=== PATIENT | female | born 1990 | race Caucasian/White ===

== ENCOUNTER 2024-05-28 21:09 | Inpatient (IN) | payer OTHER ==
[~2024-05-28] VITALS: Ht 170.2 cm; Wt 71.0 kg
[~2024-05-28 21:09] MED LIST: Enoxaparin 40 MG/0.4 ML SYR SC SCH
[2024-05-28 21:22] LABS: BASOPHILS ABSOLUTE AUTO 0.04 K/mm3 (0.00-0.23); BASOPHILS PERCENT AUTO 0 % (0-2); EOSINOPHILS ABSOLUTE AUTO 0.37 K/mm3 (0.00-0.68); EOSINOPHILS PERCENT AUTO 4 % (0-6); Hematocrit 31.6 % (33.0-51.0); Hemoglobin 10.2 g/dL (11.5-16.0); IMMATURE GRAN ABSOLUTE AUTO 0.03 K/mm3 (0.00-0.10); IMMATURE GRAN PERCENT AUTO 0 % (0-1); LYMPHOCYTES ABSOLUTE AUTO 2.81 K/mm3 (0.84-5.20); LYMPHOCYTES PERCENT AUTO 30 % (21-46); MONOCYTES ABSOLUTE AUTO 1.17 K/mm3 (0.16-1.47); MONOCYTES PERCENT AUTO 12 % (4-13); Mean Corpuscular HGB 23.7 pg (26.0-34.0); Mean Corpuscular HGB Conc 32.3 g/dL (31.5-36.5); Mean Corpuscular Volume 74 fL (80-100); Mean Platelet Volume 9.3 fL (9.1-12.4); NEUTROPHILS ABSOLUTE AUTO 4.99 K/mm3 (1.96-9.15); NEUTROPHILS PERCENT AUTO 53 % (41-73); Platelet Count 331 K/mm3 (150-400); RDW Coefficient Variation 21.3 % (11.7-14.2); RDW Standard Deviation 55.8 fL (35.1-46.3); White Blood Cell Count 9.41 K/mm3 (4.00-11.30)
[2024-05-28 21:29] LABS: Source, Urine Clean Catch
[2024-05-28 21:34] LABS: Bilirubin, Urine Neg (Neg); Blood, Urine Neg (Neg); Glucose Qualitative, Urine Neg (Neg); Ketones, Urine Neg (Neg); Leukocyte Esterase, Urine 1+ (Neg); Nitrite, Urine Neg (Neg); Protein, Urine 2+ (Neg); Urobilinogen, Urine 1+ (Normal)
[2024-05-28 21:42] LABS: Appearance, Urine Hazy (Clear); Color, Urine Yellow (P-Yellow)
[2024-05-28 21:43] LABS: Amorphous Mod (0-Heavy); Bacteria Few /hpf; Mucus Mod (0-Heavy); Red Blood Cells, Urine Not Seen /hpf (0-2); Squamous Epithelial Cells Few /hpf (Few)
[2024-05-28 21:44] LABS: U Amphetamine Screen DETECTED; U Barbituate Screen Not Detected; U Benzodiazapine Screen DETECTED; U Buprenorphine Screen Not Detected; U Cannabinoids Screen DETECTED; U Cocaine Screen Not Detected; U Methadone Screen Not Detected; U Methamphetamine Screen DETECTED; U Opiates Screen Not Detected; U Oxycodone Screen Not Detected; U Phencyclidine Screen Not Detected
[2024-05-28 21:46] LABS: Acetaminophen, Random <2.0 ug/mL (10.0-30.0); Alanine Aminotransfer (ALT/SGP 23 U/L (12-78); Albumin, Blood 3.3 g/dL (3.4-5.0); Alk Phos 70 U/L (50-136); Anion Gap 9 mmol/L (3-11); Aspartate Aminotrans (AST/SGOT 20 U/L (12-37); Bilirubin, Total 0.4 mg/dL (0.1-1.0); Blood Urea Nitrogen 18 mg/dL (8-24); Bun/Creatinine Ratio 26.2 (12.0-20.0); CO2, Blood 25 mmol/L (21-32); Calcium, Blood 8.4 mg/dL (8.5-10.1); Chloride, Blood 109 mmol/L (98-108); Creatinine, Blood 0.69 mg/dL (0.40-1.00); Ethanol (Alcohol), Blood, Med <3 mg/dL; Globulin, Blood 3.2 g/dL (2.2-4.0); Glomerular Filtration Rate 67 (60-); Glucose, Blood 162 mg/dL (70-99); Potassium, Blood 3.4 mmol/L (3.5-5.5); Salicylate <1.7 mg/dL (2.8-20.0); Sodium, Blood 140 mmol/L (136-145); Total Protein, Blood 6.5 g/dL (6.4-8.2)
[2024-05-28] MEDS ORDERED: ZIPR60 PO (21:48)
[2024-05-28] MEDS ORDERED: MIRT30ST PO (21:48)
[2024-05-28] MEDS ORDERED: AMOCLA875 PO (21:48)
[2024-05-28] MEDS ORDERED: GABA100 PO (21:48)
[2024-05-28] MEDS ORDERED: Prozac40 MG PO (21:48)
[2024-05-28] MEDS ORDERED: IBU600 M1 PO (21:49)
[2024-05-28] MEDS ORDERED: ATOM40 PO (21:49)
[2024-05-28] MEDS ORDERED: CLON1 UD (21:49)
[2024-05-28] MEDS ORDERED: NS 1,000 ML IV SCH ×2 (22:15→23:50)
[2024-05-28 22:26] LABS: Magnesium, Blood 1.9 mg/dL (1.6-2.4)
[2024-05-28] MEDS ORDERED: Ondansetron HCl 2 MG / ML 2ML Vial IV PRN (23:50)
[2024-05-28] MEDS ORDERED: FLU VACC TS2024-25(6MOS UP)/PF 45 MCG/0.5 ML SYRINGE IM ONE (23:55)
[2024-05-29] VITALS (87 sets, daily range): BP systolic 84–122; BP diastolic 45–77
[2024-05-29] MEDS ORDERED: Potassium Chl 20MEQ/Water100ML 100 ML IV SCH (05:00)
[2024-05-29 05:26] LABS: BASOPHILS ABSOLUTE AUTO 0.03 K/mm3 (0.00-0.23); BASOPHILS PERCENT AUTO 1 % (0-2); EOSINOPHILS ABSOLUTE AUTO 0.35 K/mm3 (0.00-0.68); EOSINOPHILS PERCENT AUTO 6 % (0-6); Hematocrit 30.2 % (33.0-51.0); Hemoglobin 9.6 g/dL (11.5-16.0); IMMATURE GRAN ABSOLUTE AUTO 0.01 K/mm3 (0.00-0.10); IMMATURE GRAN PERCENT AUTO 0 % (0-1); LYMPHOCYTES ABSOLUTE AUTO 2.88 K/mm3 (0.84-5.20); LYMPHOCYTES PERCENT AUTO 45 % (21-46); MONOCYTES ABSOLUTE AUTO 0.65 K/mm3 (0.16-1.47); MONOCYTES PERCENT AUTO 10 % (4-13); Mean Corpuscular HGB 23.6 pg (26.0-34.0); Mean Corpuscular HGB Conc 31.8 g/dL (31.5-36.5); Mean Corpuscular Volume 74 fL (80-100); NEUTROPHILS ABSOLUTE AUTO 2.45 K/mm3 (1.96-9.15); NEUTROPHILS PERCENT AUTO 38 % (41-73); Platelet Count 309 K/mm3 (150-400); RDW Coefficient Variation 21.6 % (11.7-14.2); RDW Standard Deviation 56.9 fL (35.1-46.3); Red Blood Cell Count 4.07 M/mm3 (3.80-5.20); White Blood Cell Count 6.37 K/mm3 (4.00-11.30)
[2024-05-29 05:55] LABS: Bilirubin, Total 0.5 mg/dL (0.1-1.0); Bun/Creatinine Ratio 23.8 (12.0-20.0); Calcium, Blood 8.2 mg/dL (8.5-10.1); Creatinine, Blood 0.63 mg/dL (0.40-1.00); Potassium, Blood 3.4 mmol/L (3.5-5.5)
[2024-05-29] MEDS ORDERED: Mag Sulfate 1 GM/D5% 100ML 100 ML IV STA (09:30)
--- NOTE | 2024-05-29 10:57 | NUR ---
MORNING UPDATE AND POISON CONTROL RECOMMENDATIONS: PATIENT ARRIVED TO UNIT AT 08:08. PATIENT LETHARGIC. WITH LOUD VERBAL STIMULI, PATIENT ABLE TO NOD/SHAKE HEAD IN RESPONSE. ABLE TO WIGGLE TOES AND GENTLY SQUEEZE HANDS ON COMMAND. LATER IN THE MORNING, PATIENT ABLE TO LIFT HIPS FOR PLACEMENT OF BEDPAN. PATIENT ABLE TO VOID. URINE DARK WITH A FOUL ODOR. BLOOD PRESSURES ARE STABLE WITH MAPS >65. SBP IN THE 90S-100S. PATIENT CONTINUES TO BE SINUS MCKAY WITH HR 38-45. EKG PERFORMED AT 0839. IT SHOWED A QTC OF 491. SERIAL EKGS ORDERED PER DR. MARTINS. PATIENT CONTINUES TO BE STABLE ON ROOM AIR WITH SPO2 >98% AND RR AT 15. POISON CONTROL CALLED AROUND 10:45 THIS MORNING TO HELP CONTINUE TO MONITOR PATIENT. DISCUSSED ELECTROLYTE RECOMMENDATIONS (KCL >4, MAG >2 AND IONIZED CA >1.6). POTASSIUM AND MAG HAVE BEEN REPLACED THIS AM. ALSO RECOMMENDED TO CHANGE EKG TO Q6 (RATHER THAN Q8) AND THAT PATIENT MAY BE A CANDIDATE FOR LOW DOSE OF ATROPINE OR DOPAMINE. CALL PLACED TO DR. MARTINS. AWAITING CALL BACK.
[2024-05-29 12:23] LABS: Magnesium, Blood 2.5 mg/dL (1.6-2.4)
--- NOTE | 2024-05-29 12:53 | NUR ---
DECREASING HR AND BP: CALLED DR. MARTINS TO DISCUSS MOST RECENT LABS AND DOWNWARD TREND IN HR AND BP. HR IS NOW 36-42 BPM AND SPB IS IN THE 90S. MAPS STAYING ABOVE 65. PATIENT HAS ASKED QUESTIONS TO STAFF AND LET KNOW KNOW IF SHE IS NEEDS TO VOID OR THAT SHE IS THIRSTY. NEW ORDERS ENTERED BY DR. MARTINS.
[2024-05-29] MEDS ORDERED: Dopamine/Dextrose 250 ML IV SCH (13:00)
[2024-05-29] MEDS ORDERED: CALCIUM GLUC IN NACL, ISO-OSM 50 ML IV ONE (13:00)
[2024-05-29] MEDS ORDERED: NS 1,000 ML IV SCH (16:55)
--- NOTE | 2024-05-29 17:18 | NUR ---
BELONGINGS: BELONGINGS LOCKED IN THE CLOSET IN THE PATIENT'S ROOM. TWO BAGS ARE PRESENT.
--- NOTE | 2024-05-29 17:21 | NUR ---
OVERDOSE MEDICATIONS AND CUTS ON INNER LEFT FOREARM/WRIST NOTIFIED DR. MARTINS THAT THE PATIENT HAS SOME RECENT CUTS ON THE INNER SIDE OF HER LEFT FOREARM. THE SCABS ARE INTACT. THE WOUND IS HUMANITIES COORDINATOR AND C/D/I. IN ADDITION NOTIFIED DR. MARTINS THAT THE LAST TIME THE PATIENT WAS AWAKE, SHE WAS ABLE TO REPORT TO THE RN THAT SHE REMEMBERED TAKING CLONAZEPAM AND FLEXERIL. PATIENT DID NOT RESPOND TO THE RN WHEN SHE ASKED ABOUT GEODON.
--- NOTE | 2024-05-29 17:23 | NUR ---
SHIFT SUMMARY: NEURO: PATIENT SHOWED IMPROVEMENT DURING THE SHIFT. BY THE END OF THE SHIFT, PATIENT WAS SPEAKING TO STAFF AT TIMES AND ABLE TO ASK QUESTIONS WELL VERBALLY RESPOND TO STAFF QUESTIONS. PATIENT ABLE TO STAND TO THE BEDSIDE COMMODE. HOWEVER, PATIENT IS IMPULSIVE AND NEEDS REMINDERS TO FOLLOW STAFF COMMANDS. PATIENT CONTINUES TO BE LETHARGIC. PATIENT ABLE TO CORRECT STAFF AT THE END OF SHIFT THAT SHE TOOK CLONIDINE (NOT KLONIPIN) AND FLEXERIL. DR. MARTINS UPDATED. CARDIAC: PATIENT REQUIRED INITIATION OF DOPAMINE GTT TODAY. PATIENT ENDED THE SHIFT AT 4 MCG/KG/MIN TO MAINTAIN HR ABOVE 45 AND MAPS >65. PATIENT IS DIZZY AND UNSTEADY WITH STANDING. QTC REMAINED IN THE HIGH 400S DURING THE SHIFT. REPEAT EKG AT 14:30 DID NOT SHOW SIGNIFICANT CHANGES. RESPIRATORY: PATIENT REMAINED STABLE ON ROOM AIR WITH SPO2 >96% AND RR IN THE TEENS. LUNG SOUNDS CLEAR AND DIMINISHED. GI/: PATIENT UP TO THE BEDSIDE COMMODE MULTIPLE TIMES. URINE IMPROVED IN AMOUNT AND COLOR. FOUL ODOR PRESENT. BY THE END OF SHIFT, PATIENT AWAKE ENOUGH TO REQUEST FOOD AND TAKE SMALL SIPS. DR. MARTINS UPDATED. PSYCHSOCIAL: PATIENT REQUESTED THAT WE DO NOT RELEASE INFORMATION TO ANY CALLER (THIS INCLUDES HER MOTHER AND SADIE). SADIE CALLED THIS EVENING TO CHECK IN ON THE PATIENT. HE UNDERSTOOD WHY THE RN WAS NOT ABLE TO RELEASE ANY INFORMATION AND EXPRESSED HIS CONCERN OVER HER HAVING A SAFE DISCHARGE.
--- NOTE | 2024-05-29 18:18 | NUR ---
UPDATE TO POISON CONTROL: UPDATED POISON CONTROL THAT THE PATIENT REPORTED SHE TOOK CLONIDINE AND FLEXERIL. ALSO UPDATED ON CURRENT HR AND RATE OF DOPAMINE GTT. THEY REPORTED THAT THEY WILL CONTINUE TO CHECK IN. NO NEW RECOMMENDATIONS AT THIS TIME.
--- NOTE | 2024-05-29 20:46 | NUR ---
ASSUMPTION OF CARE: ASSUMED CARE OF PT AT 1900, RECEIVED REPORT FROM TRICIA NICHOLSON. PT ALERT AND ORIENTED TO SELF AND DATE/TIME. PT VERY IMPULSIVE BUT FOLLOWS DIRECTIONS. VERY DROWSY WHEN NOT STIMULATED, FALLS ASLEEP QUICKLY. DENIES SI AT THIS TIME. PT DOES NOT RECALL WHY SHE IS HERE OR WHAT HAPPENED. DOPAMINE INFUSING AT 4 MCG/KG/MIN TO MAINTAIN HR >45 AND MAP >65. HR CURRENTLY 50'S, MAP >65. PT SINUS BRADYCARDIC. DENIES CP/PRESSURE. SPO2 >95% ON RA, DENIES SOB. LUNGS CLEAR. ABLE TO TRANSFER TO BSC WITH ASSIST, VOIDING YELLOW URINE. PUPILS EQUAL AND REACTIVE. NS INFUSING AT 100 ML/HR. PIV TO RAC PATENT AND INFUSING. PIV TO LFA PATENT AND SALINE LOCKED. BED LOW AND LOCKED, 1:1 SITTER AT DOORWAY.
[2024-05-30] VITALS (67 sets, daily range): BP systolic 85–164; BP diastolic 47–94
[2024-05-30 04:01] LABS: BASOPHILS ABSOLUTE AUTO 0.03 K/mm3 (0.00-0.23); BASOPHILS PERCENT AUTO 0 % (0-2); EOSINOPHILS ABSOLUTE AUTO 0.34 K/mm3 (0.00-0.68); EOSINOPHILS PERCENT AUTO 5 % (0-6); Hematocrit 36.8 % (33.0-51.0); Hemoglobin 11.4 g/dL (11.5-16.0); IMMATURE GRAN ABSOLUTE AUTO 0.01 K/mm3 (0.00-0.10); IMMATURE GRAN PERCENT AUTO 0 % (0-1); LYMPHOCYTES ABSOLUTE AUTO 2.76 K/mm3 (0.84-5.20); LYMPHOCYTES PERCENT AUTO 37 % (21-46); MONOCYTES ABSOLUTE AUTO 0.67 K/mm3 (0.16-1.47); MONOCYTES PERCENT AUTO 9 % (4-13); Mean Corpuscular HGB 23.4 pg (26.0-34.0); Mean Corpuscular Volume 76 fL (80-100); Mean Platelet Volume 9.3 fL (9.1-12.4); NEUTROPHILS ABSOLUTE AUTO 3.57 K/mm3 (1.96-9.15); NEUTROPHILS PERCENT AUTO 48 % (41-73); Platelet Count 359 K/mm3 (150-400); RDW Coefficient Variation 22.1 % (11.7-14.2); RDW Standard Deviation 59.5 fL (35.1-46.3); Red Blood Cell Count 4.87 M/mm3 (3.80-5.20); White Blood Cell Count 7.38 K/mm3 (4.00-11.30)
[2024-05-30 04:21] LABS: Albumin, Blood 3.2 g/dL (3.4-5.0); Albumin/Globulin Ratio 0.9 (0.8-1.8); Bilirubin, Total 0.4 mg/dL (0.1-1.0); Bun/Creatinine Ratio 15.7 (12.0-20.0); Calcium, Blood 8.6 mg/dL (8.5-10.1); Creatinine, Blood 0.58 mg/dL (0.40-1.00); Globulin, Blood 3.5 g/dL (2.2-4.0); Potassium, Blood 3.6 mmol/L (3.5-5.5); Total Protein, Blood 6.7 g/dL (6.4-8.2)
[2024-05-30] MEDS ORDERED: Potassium Chloride 40 MEQ IV SCH (04:35)
[2024-05-30] MEDS ORDERED: Potassium Chl 20MEQ/Water100ML 100 ML IV SCH (04:40)
--- NOTE | 2024-05-30 05:23 | NUR ---
SHIFT SUMMARY: PT MORE ALERT THIS MORNING. ANSWERING QUESTIONS AND MAKING NEEDS KNOWN. PT UPSET ABOUT BEING IN THE ICU. STATES SHE WANTS TO LEAVE AND HAS NO REASON TO BE HERE. DENIES SI, DENIES TAKING ANY MEDICATION PRIOR TO COMING TO THE HOSPITAL, STATES THAT SHE HAD NO MEDICATION WITH HER. EDUCATED PT ON WHY SHE IS IN THE ICU AND PLAN TO SEE PSYCHIATRIST TODAY. PT AGREEABLE TO PLAN. CONTINUES ON DOPAMINE AT 4 MCG/KG/MIN THIS MORNING. SEE FLOWSHEET FOR TITRATIONS. ATTEMPTED TO TITRATE DOWN AND PT HR DROPPED TO 39, MAP DROPPED TO 55. TURNED BACK UP. PT HR CURRENTLY IN THE 50'S WITH A MAP >65. DENIES CP/PRESSURE. REMAINS ON RA WITH SPO2 MID TO HIGH 90'S. RR 14-20. NS AT 100 ML/HR. PIVS INTACT. PT UP TO BSC T/O THE NIGHT WITH ASSIST, VOIDING LARGE AMOUNTS OF YELLOW URINE. PT DIZZY AND LIGHTHEADED ONCE THIS SHIFT WHILE GETTING UP. PT VERY IMPULSIVE AND TRIES TO CLIMB OVER RAIL TO GET TO THE BATHROOM. BED LOW AND LOCKED, SITTER AT THE DOOR. PT CALLED THIS MORNING FOR AN UPDATE, PER THE PT SHE DID NOT WANT THIS RN UPDATING HER ON HER CONDITION.
--- NOTE | 2024-05-30 07:38 | NUR ---
[facility] Patient resting in bed, a little restless moving legs and arms around. Patient able to state she was in [place] in a hospital and the date currently along with her birthdate. She was able to state that she took a bunch of pills and that is why she is in the hospital. Pt did not state why she took them, when asked. Pt has 2 piv's to left forearm both flushing easily and giving blood back. Moved pts dopamine going at 4mcg to left lower forearm iv. Her normal saline at 100 and potassium chloride going into her left ac iv. No edema noted ppp x 4 ext.. Lung sounds clear t/o and abd soft non-tender, and positive abd sounds x 4 quad as well. Awaiting psychiatry to see pt today now that she is more alert. Night nurse stated that pt does not want to speak to her mother or whom she is seperated from however her stated he would be coming to the hospital today from [place], [place].
[2024-05-30] MEDS ORDERED: LORazepam 2 MG/ML 1ML Injection ONE (09:25)
[2024-05-30] MEDS ORDERED: Midazolam HCL 1 MG/ML 5MLVIAL ONE (09:36)
[2024-05-30] MEDS ORDERED: LORazepam 2 MG/ML 1ML Injection IV ONE (09:45)
[2024-05-30] MEDS ORDERED: Midazolam HCL 1 MG/ML 5MLVIAL IM ONE (09:50)
--- NOTE | 2024-05-30 11:11 | NUR ---
UPDATE AT 0920 PT STARTED RIPPING OUT HER IV'S SAYING SHE DID NOT WANT THAT MEDICINE IN HER AFTER SHE SPOKE TO THE PYCHIATRIST. SHE WAS PUT ON A 2 MD LEGAL HOLD WITH THE PLAN TO HAVE HER GO TO [facility] ONCE SHE IS MEDICALLY STABLE. SHE BEGAN REFUSING CARE AND RIPPING AT EVERY IV. STAFF PROCEEDED TO CALL A CODE NICE AND PLACE HER IN RESTRAINTS AT 0930 4 POINTS. PULSE WAS IN THE 90'S ONCE LEADS WERE REPLACED BACK ON HER. SHE HAS BEEN STATING OVER AND OVER " I DONT WANT THAT "SHIT" IN ME". "I DON'T WANT TAHT MEDICINE IN ME. i DON'T CARE IF MY HEART RATE DROPS." SHE WAS THEN GIVEN IM VERSED. SHE HAS COMED DOWN SOME AT 1000 AND ANOTHER IV WAS ATTEMPTED BUT SHE AGAIN BEGAN TO REFUSE CARE, IV'S NOT SUCCESSFUL. TAPPING MACHINE OPERATOR WAS ABLE WITH ASSIT FROM SECURITY AND STAFF, ABLE TO GET A POWERGLIDE INTO HER LEFT UPPER ARM. PT REMAINS IN 4 POINT TWICE TOUGH CUFFS. SHE WAS REPOSITIONED SUPOINE HEAD OF BED UP 20 DEGREES AND ARMS AND LEGS MOVED.
[2024-05-30] MEDS ORDERED: LORazepam 2 MG/ML 1ML Injection IV PRN (11:15)
[2024-05-30] MEDS ORDERED: NS 1,000 ML IV SCH ×2 (13:47→13:55)
--- NOTE | 2024-05-30 14:28 | NUR ---
UPDATE PT WAS BATHED BED BATH AND ANEUDY AREA CLEANED AFTER SHE USED THE BEDPAN. HER ANKLES WERE TAKEN OUT OF RESTRAINTS AND HER WRIST WERE PUT IN SOFT RESTRAINTS. PT WAS COOPERATIVE WE PUT ON NEW SHEETS AND CLEANED HER UP.
[2024-05-30] MEDS ORDERED: MIRT30 PO (15:20)
[2024-05-30] MEDS ORDERED: CYCL10 PO (15:22)
[2024-05-30] MEDS ORDERED: CATAPRES0.2 M1 PO (15:23)
--- NOTE | 2024-05-30 18:30 | NUR ---
END OF SHIFT NOTE PT HAS BEEN RESTING IN BED WITH RESTRAINTS ON UPPER WRIST SOFT RESTRAINTS. TWICE TOUGH CUFFS WERE TAKEN OFF AT 1415 TODAY. PT STILL NOT WANTING TO HAVE THE IV MEDICATION GIVEN TO HER TO COUNTER ACT THE PILLS SHE OVER DOSED ON. STATED BY HER. PT IS ON ROOM AIR CLEAR LUNG SOUNDS PULSE IS 40-60'S SINUS MCKAY TO SINUS WITH THE DOPAMINE GOING AT 2MCG/KG/MIN. PT IS ALSO ON NS AT 100/HR ALL GOING IN TO THE POWERGLIDE THAT WAS PLACED TODAY SINCES SHE PULLED OUT HER OTHER 2 IV'S ON LEFT ARM TODAY. SHE IS USING A BEDPAN TO VOID CURRENTLY AND GETS ASSISTANCE TO EAT. SHE IS ON A 2 MD HOLD AND HER CIVIL RIGHTS WERE READ TO HER TODAY. PLAN IS TO GET HER INTO A U FACILITY WHEN MEDICALLY STABLE.
--- NOTE | 2024-05-30 20:14 | NUR ---
ASSUMPTION OF CARE: ASSUMED CARE OF PT AT 1900 FROM NICOLE NICHOLSON. PT ALERT AND ORIENTED X4. CALM AND COOPERATIVE WITH CARE AND FOLLOWING DIRECTION. PT AGREEABLE TO NOT PULLING AT IV'S, RESTRAINTS REMOVED AT 1999. PT ABLE TO STAND AND TRANSFER TO THE BEDSIDE COMMODE WITH ASSIST, VOIDING YELLOW URINE. PT ON RA WITH SPO2 MID TO HIGH 90'S. DENIES SOB. LUNGS CLEAR. CARDIAC MONTIOR IN PLACE, SB/SR WITH HR 45-65. MAP >65. DOPAMINE INFUSING AT 2 MCG/KG/MIN, SEE FLOWSHEET FOR TITRATIONS. DENIES CP/PRESSURE. DENIES PAIN T/O. PT STATES SHE IS NOT SUICIDAL AT THIS TIME. STATES SHE JUST WANTS TO SLEEP. PIV TO RAC, INTACT AND INFUSING DOPAMINE AND NS AT 100 ML/HR. POWERLGIDE TO KASEY, PATENT AND SALINE LOCKED. TOLERATING PO INTAKE AT THIS TIME. DENIES N/V. 1:1 SITTER AT THE DOOR. BED LOW AND LOCKED.
[2024-05-31] VITALS (33 sets, daily range): BP systolic 100–146; BP diastolic 56–91
[2024-05-31 04:20] LABS: Bun/Creatinine Ratio 21.9 (12.0-20.0); Creatinine, Blood 0.73 mg/dL (0.40-1.00); Magnesium, Blood 1.8 mg/dL (1.6-2.4); Potassium, Blood 3.7 mmol/L (3.5-5.5)
--- NOTE | 2024-05-31 05:07 | NUR ---
SHIFT SUMMARY: PT REMAINS ALERT AND ORIENTED T/O THE NIGHT. PLEASANT AND COOPERATIVE WITH ALL CARE. ABLE TO REST OFF AND ON T/O THE NIGHT. DOPAMINE REMAINS ON SB. SANE NURSE IN PLACE, SB/SR WITH HR 50-70'S. MAP >65. DENIES CP/PRESSURE. REMAINS ON RA, SPO2 HIGH 90'S. DENIES SOB. LUNGS CLEAR, RR 16-20. NS AT 100 ML/HR. POWERGLIDE TO KASEY PATENT AND INFUSING. PIV TO RAC PATENT AND SALINE LOCKED. ABLE TO VOID IN BSC WITH ASSIST TO COMMODE. VOIDING DARK URINE. NO BM THIS SHIFT. DENIES SI WHEN ASKED. TOLERATING PO INTAKE. BED LOW AND LOCKED, 1:1 SITTER AT DOOR.
[2024-05-31] MEDS ORDERED: HydrALAZINE HCl 10 MG Tab PO PRN (11:15)
--- NOTE | 2024-05-31 11:26 | NUR ---
REASSESSMENT PT HAS BEEN RESTING IN BED THROUGHOUT THE MORNING. GETS UP TO THE BR WITH ASSISTANCE FOR MANAGING CORDS ONLY. SHE IS ALERT AND ORIENTED, COOPERATIVE. LUNGS CLEAR, RA, SR WITH RATE IN THE 60S, BP STABLE WITH MAP OF 90. EATING AND DRINKING WITHOUT DIFFICULTY. PT DENIES SI TO THIS NURSE. PT REQUESTED HER BE NOTIFIED TO FITNESS MANAGER HER VEHICLE SO IT DOESN'T GET TOWED. PHONED NUMBER AVAILABLE FOR HER , BUT NO ANSWER. DR. MARTINS ROUNDED ON PT AND MEDICALLY CLEARED HER FOR BHU. NURSING MAMMALOGIST NOTIFIED AND AWAITING BED ASSIGNMENT.
[2024-05-31] MEDS ORDERED: HYDR10 PO (14:52)
--- NOTE | 2024-05-31 17:23 | NUR ---
SHIFT SUMMARY PT HAS REMAINED OFF OF THE DOPAMINE THROUGHOUT THE SHIFT. DR. MARTINS MEDICALLY CLEARED PT AND PT IS TO GO TO [facility]. REPORT JUST GIVEN TO [facility] NURSE. PT AWARE OF THE PLAN TO GO TO [facility] TONIGHT AND IS AGREEABLE. PT REMAINS ON RA, CLEAR LUNGS. PT IS EATING ALL OF HER MEALS, GETTING UP INDEPENDENTLY TO VOID. PT TOOK A SHOWER. CONTINUES ON 1:1 SUPERVISION.
[2024-05-31] MEDS ORDERED: CYCL10 PO (23:05)
[2024-05-31] MEDS ORDERED: ATOM40 PO (23:06)
[2024-05-31] MEDS ORDERED: CLON.2 PO (23:08)
[2024-05-31] MEDS ORDERED: CLON1 PO (23:10)
[2024-05-31] MEDS ORDERED: Prozac40 MG PO (23:10)
[2024-05-31] MEDS ORDERED: MIRT30ST PO (23:11)
[2024-05-31] MEDS ORDERED: GEODON60 MG PO (23:13)
[2024-05-31] MEDS ORDERED: ZIPR60 PO (23:15)
[2024-05-31] MEDS ORDERED: AMOCLA875 PO (23:17)
[2024-05-31] MEDS ORDERED: ESZO1 PO (23:18)
[2024-05-31] MEDS ORDERED: GABA100 PO (23:21)
== END 2024-05-31 18:10 | DRG 917 ==
LOC: ER 21:09 → EDBD 23:49 → ICUE 23:49 → ERHOLD 23:49 → ICUE 05-29 07:35
PROVIDERS: Emergency Medicine; Internal Medicine; ADMIT Internal Medicine
DX: T43.592A Poisoning by other antipsychotics and neuroleptics, intentional self-harm, initial encounter (principal); G92.8 Other toxic encephalopathy; F33.2 Major depressive disorder, recurrent severe without psychotic features; T42.4X2A Poisoning by benzodiazepines, intentional self-harm, initial encounter; T43.022A Poisoning by tetracyclic antidepressants, intentional self-harm, initial encounter; F60.3 Borderline personality disorder; F43.12 Post-traumatic stress disorder, chronic; F41.9 Anxiety disorder, unspecified; G62.9 Polyneuropathy, unspecified; R00.1 Bradycardia, unspecified; E87.6 Hypokalemia; Z79.899 Other long term (current) drug therapy
CPT/HCPCS: 36415; 80048; 80053; 80320; 81001; 81025; 82330; 82550; 83735; 83880; 84132; 85025; 93005; 93010; 96360; 99285-25; C1751; G0480; J0612; J1265; J1650; J2060; J2250; J3475; J3480; J7030; P9612

== ENCOUNTER 2024-05-31 15:41 | Inpatient (IN) | payer OTHER ==
[~2024-05-31 15:41] MED LIST changes: +AMOCLA875 PO; +ATOM40 PO; +CATAPRES0.2 M1 PO; +CLON1 UD; +CYCL10 PO; -Enoxaparin 40 MG/0.4 ML SYR SC SCH; +GABA100 PO; +HYDR10 PO; +IBU600 M1 PO; +MIRT30 PO; +MIRT30ST PO; +Prozac40 MG PO; +ZIPR60 PO
[2024-05-31] MEDS ORDERED: OLANZapine 10 MG Vial IM PRN ×2 (19:00)
[2024-05-31] MEDS ORDERED: Acetaminophen 325 MG TABLET PO PRN (19:00)
[2024-05-31] MEDS ORDERED: FLU VACC TS2024-25(6MOS UP)/PF 45 MCG/0.5 ML SYRINGE IM ONE (19:05)
[2024-05-31] MEDS ORDERED: Aluminum Hydroxide 320MG/5ML 473 ML PO PRN (19:05)
[2024-05-31] MEDS ORDERED: Ibuprofen 600 MG Tab PO PRN (19:05)
[2024-05-31] MEDS ORDERED: ClonazePAM 0.5 MG Tab PO SCH (21:00)
[2024-05-31 21:59] VITALS: BP 167/102
[2024-05-31] MEDS ORDERED: CYCL10 PO (23:05)
[2024-05-31] MEDS ORDERED: ATOM40 PO (23:06)
[2024-05-31] MEDS ORDERED: CLON.2 PO (23:08)
[2024-05-31] MEDS ORDERED: Prozac40 MG PO (23:10)
[2024-05-31] MEDS ORDERED: CLON1 PO (23:10)
[2024-05-31] MEDS ORDERED: MIRT30ST PO (23:11)
[2024-05-31] MEDS ORDERED: GEODON60 MG PO (23:13)
[2024-05-31] MEDS ORDERED: ZIPR60 PO (23:15)
[2024-05-31] MEDS ORDERED: AMOCLA875 PO (23:17)
[2024-05-31] MEDS ORDERED: ESZO1 PO (23:18)
[2024-05-31] MEDS ORDERED: GABA100 PO (23:21)
--- NOTE | 2024-06-01 04:13 | NUR ---
Patient is alert and oriented, cooperative with assessment and conversive with staff and peers. She spent time in the milieu watching TV prior to bed. She has several medications in her med reconciliation, but several she did not know doses for and those will be reviewed with her pharmacy in [place] when pharmacy can be reached. Hopefully we can reach out on the holiday. Patient was very open and rafal about the auditory hallucinations that have driven to her recent suicide attempt. They involve someone taking her kids and torchering them while she watched. She said she has had intermittant hallucinations for years, but she can usually control them ian they are intermittant. will continiiue close monitoring every 15 minutes for comfort and safety.
--- NOTE | 2024-06-01 04:22 | NUR ---
A [facility] tariq came to the unit late last night to deliver a property receipt for a locked box of prescriptions that were taken the night they picked her up after her overdose. Receipt is in the back of her chart. Hopefully, this can be retrieved prior to her discharge home to [place].
[2024-06-01 08:17] VITALS: BP 143/93
[2024-06-01] MEDS ORDERED: Multivitamins 1 Tab PO SCH (09:00)
[2024-06-01] MEDS ORDERED: Ziprasidone HCL 20 MG Cap PO SCH (17:00)
--- NOTE | 2024-06-01 17:57 | NUR ---
SHIFT SUMMARY. PT DENIES SI. PT DOES HAVE AH. SHE HEARS IT ALL THE TIME. SHE HEARS THAT THE FBI TELLING HER THAT SHE WILL NEVER SEE HER KIDS AGAIN. SHE IS AWARE OF HER SURRONDINGS AND IS ABLE TO REMAIN CALM THOUGH OUT THE DAY. SHE MADE A PHONE CALL AFTER DINNER AND WAS CRYING. ASKED IF SHE NEEDED TO TALK AND SHE SAID " NO I'M OK". MED COMPLIANT AND RESTED THROUGH THE DAY. WILL HAVE A THYROID BIOPSY AFTER BATSHEVA. WILL CONTINUE TO MONITOR.
[2024-06-01] MEDS ORDERED: ClonazePAM 0.5 MG Tab PO SCH (21:00)
[2024-06-01 21:22] VITALS: BP 155/94
--- NOTE | 2024-06-02 06:01 | NUR ---
SHIFT SUMMARY Pt was sitting outside nurses' station on the phone at start of shift. The conversation did not appear to be productive, given pt's increase in volume and tearfulness. Encourage pt to end conversation before it became disruptive to peers. Pt was able to lower her volume and gain some emotional control. Cooperative with ending the call and took HS Klonopin, although expressed disappointment in the decrease in anxiety meds. BP elevated (155/94), taken after pt's conversation. Pt remained calm for rest of shift and appeared to be sleeping well overnight. No report of AH or SI this shift.
--- NOTE | 2024-06-02 09:12 | NUR ---
PT COOPERATIVE AND PLEASANT. ON LEAVING MY SHIFT LAST NIGHT PT WAS CRYING AND TALKING IN A HIGHER TONE, TO HER , SHE SAID THAT SHE WAS MISSING HER KIDS A LOT AND HER FAMILY LIVES WITH HER 'S FAMILY AND SHE WANTS THEM TO GET A PLACE ON THEIR OWN, BUT " I FEEL HE IS TO HIS MOM AND NOT ME" SHE IS HEARING VOICES 25/01 THAT SAY THAT THE FBI WILL HURT AND TORTURE HER CHILDREN, AND KILL HER. PT SAID SHE IS SAD MORE THAN DEPRESSED. SHE SAID SHE NEEDS TO BE FOCUSED ON HERSELF TO GET WELL. ENCOURAGED TO SHOWER TODAY AND TO PARTICIPATE IN GROUPS. WILL CONTINUE TO MONITOR
--- NOTE | 2024-06-02 17:11 | NUR ---
SHIFT SUMMARY: PT DENIES SI, BUT STILL IS HEARING VOICES OF HARM FOR HER CHILDREN AND HERSELF. SHE HAS BEEN UP IN THE [place] INTERACTING WITH PEERS AND STAFF. SHE SHOWERED AND WENT TO GROUPS. SHE HAS HAD A BETTER DAY TODAY. HAD A POSITIVE PHONE CALL TONIGHT AND IN A CHEERY MOOD. WILLL CONTINUE TO MONITOR
[2024-06-02] MEDS ORDERED: ClonazePAM 0.5 MG Tab PO SCH (21:00)
[2024-06-02] MEDS ORDERED: Mirtazapine 15 MG Tab PO SCH (21:00)
--- NOTE | 2024-06-03 06:11 | NUR ---
SHIFT SUMMARY New order for Remeron at HS, but pt has hx with med. Appears to be tolerating Klonopin taper without significant distress. Pt's boyfriend called after phone hours had ended for the evening. Pt was informed. Disappointed, but accepting of rules. Pt had already spoken with him several times throughout the day. Pleasant and cooperative with staff. Minimal interactions with peers. In bed after HS meds. No concerns with mood/SI expressed. Sleeping overnight without issue.
--- NOTE | 2024-06-03 11:03 | NUR ---
PT UP AND BREAKFAST. STILL HEARS VOICES OF HARM FOR HER CHILDREN AND HARM TO HERSELF. SHE SAID SHE HAD A RESTLESS SLEEP LAST NIGHT. SHE WANTS TO SEE HER KIDS. SHE SAYS THAT HER MOM WON'T LET HER STAY WITH HER WHEN SHE LEAVES SO NOW SHE IS HOMELESS. SHE DOESN'T WANT TO GO BACK TO HER HUBAND WHO HAS THE KIDS. DENIES TO BE SI, HI, A/V/H. STATES SHE IS JUST TIRED AND SAD. SHE WANTS THE DR TO INCREASE HER MEDS.
--- NOTE | 2024-06-03 11:55 | NUR ---
CONTINUE OF PREVIOUS NOTE. DR SPOKE TO PT ABOUT HER MEDICATIONS. PT HAS BEEN RESTING IN BED THIS AM. WILL CONTINUE TO MONITOR.
--- NOTE | 2024-06-03 17:16 | NUR ---
SHIFT SUMMARY: PT HAS SLEPT MOST OF THE DAY. SHE SAID SHE IS TIRED AND ONLY CAME OUT FOR MEALS. LET HER KNOW OF HER TRYING TO GET A HOLD OF HER AND SHE SAID SHE WOULD CALL HIM WHEN SHE WANTED. EXPLAINED TO HER THAT HE WANTS INFORMATION ON HER AND WE CANNOT GIVE IT OUT. SHE SAID OK. WILL CONTINUE TO MONITOR.
[2024-06-03 20:38] VITALS: BP 149/109
--- NOTE | 2024-06-04 00:09 | NUR ---
SHIFT SUMMARY Pt reports anxiety, but is feeling more hopeful today d/t phone call with kids. Pt has been participating in groups during the day, but received report that pt mostly slept on day shift. Pt was in bed at start of noc shift, got up for snack, then went back to bed. Gave HS meds and asked pt about her day/mood given the change in behavior. Pt denies SI and other concerns. Reports that she just felt like sleeping. Pt will converse with staff when engaged in conversation, but otherwise keeps to self consistently. On previous days, pt had monopolized the patient phone, so day shift staff enforced phone rule of 10 min limit to conversations. Since she has not been noted to interact with peers and talking on the phone was her main activity outside of groups, pt might need encouragement to socialize or engage in independent activities when she has free time. Pt believes that an increase in meds would be helpful for her anxiety, but denies other concerns.
--- NOTE | 2024-06-04 17:11 | NUR ---
SHIFT SUMMARY: PT DENIES SI. DID NOT EXPRESS ABOUT THE VOICES IN HER HEAD. WHEN SHE ASKED TO USE THE PHONE IN THE MORNING AND TOLD IT WASN'T PHONE HOURS SHE BECAME FUSTRATED AND STOMPED OFF WITH A GRUFF UNDER HER BREATH. SHE WAS NOT IN A HAPPY MOOD UNTIL MID DAY AND SHE STAYED AWAKE THE WHOLE DAY AND WAS ACTIVE IN THE MOVIES AND COLORING AND 1 GROUP. SHE INTERACTED WELL WITH HER PEERS. WILL CONTINUE TO MONITOR
[2024-06-04] MEDS ORDERED: Mirtazapine 30 MG Tab PO SCH (21:00)
--- NOTE | 2024-06-04 21:11 | NUR ---
HS ASSESSMENT PT IN BED DURING BEGINNING OF SHIFT. PT DECLINED VS FROM [facility] BUT I OBTAINED THEM DURING MED ADMINISTRATION. PT PLEASANT AND COOPERATIVE AT THIS TIME. PT DENIES ANY SI/HI OR AVH CURRENTLY. PT AGREED TO GET UP FOR HS SNACK AND JOINED PEERS IN DAY ROOM TO EAT HER SNACK. PT THEN RETURNED TO BED. WILL CONTINUE TO MONITOR AND PROVIDE SUPPORT NECESSARY.
[2024-06-04 21:23] VITALS: BP 126/79
--- NOTE | 2024-06-05 05:18 | NUR ---
SHIFT SUMMARY PT PLEASANT AND COOPERATIVE. PT REMAINED IN BED MOST OF THE SHIFT, UP 1X FOR SNACK AND RETURNED TO BED. PT DENIES SI/HI OR AVH. PT SLEPT T/O THE NIGHT W/ NO CONCERNS OR COMPLAINTS. WILL CONTINUE TO MONITOR AND PROVIDE SUPPORT NECESSARY.
[2024-06-05 08:18] VITALS: BP 144/101
--- NOTE | 2024-06-05 12:50 | NUR ---
Pt Agency Communication Pts PCI Odette reached out to An Lechuga our PCI for [facility], whom contacted me she would like us to give her a call pertaining to pts discharge plan. Teri stated she was going to be faxing us over a [facility] Admit packet for pt to discharge to in hopes it will help stablize pt and support pts needs. Will inform SW and slab polisher of this to speak to pt about. Will call Odette and Update with more info. Odette PCI Peer Tutor [place] [phone]
--- NOTE | 2024-06-05 12:55 | NUR ---
Pt Pci Communication Attempted to call pts PCI Odette @ 12:55p, She stepped out of office. She will return our call as soon as able.
--- NOTE | 2024-06-05 16:09 | NUR ---
DISCHARGE PLANNING: RONIT SPOKE WITH COORDINATOR AT [facility] IN [place], PT IS FAMILIAR WITH THIS FACILITY SHE HAS BEEN INPATIENT THERE BEFORE. THIS RN OFFERED PT A SMOOTH TRANSFER TO [facility] TOMORROW IF SHE WANTS TO GO ON A VOLUNTEER BASIS. PT STS SHE WANTS TO GO THERE BUT WILL JUST D/C AND THEN GO CHECK IN. EXPLAINED TO PT THAT IS DOESN'T WORK THAT WAY, THAT WE CAN HELP HER GET THERE WITHOUT A LAPSE IN HER SAFE CARE. SHE STS SHE HAS MULTIPLE OUTSIDE RESOURCE APPTS SET UP AND MAY NOT NEED [facility]. SHE STATES SHE WANTS TO THINK ABOUT IT AND TALK TO HER FIRST.
--- NOTE | 2024-06-05 16:20 | NUR ---
THIS RN SPOKE ON THE PHONE WITH BILLIE (PCI GLUER AND WEDGER IN [place]) REGARDING PT GOING TO [facility]. PT HAS HAD MULTIPLE SUICIDE ATTEMPTS IN THE PAST, 2 OF WHICH REQUIRED INTUBATION. IT WOULD BE BENEFICIAL FOR THE PATIENT TO HAVE APPROPRIATE FOLLOW UP CARE GIVEN THE ACUITY AND FREQUENCY OF HER ATTEMPTS. [facility] WOULD ALSO BE BENEFICIAL FOR THE PATIENT BECAUSE SHE WOULD BE ABLE TO SEE HER THERAPIST THERE AND HAVE VISITATION WITH HER CHILDREN. BILLIE SAID THAT THE PT HAS BEEN TO THE [facility] AND IS FAMILIAR WITH THE PROGRAM. BILLIE WAS ABLE TO GIVE SOME INSIGHT THAT THE PT DOES NOT WANT HER FAMILY TO KNOW THAT SHE RELAPSED AND CAN FIND THE TOPIC OF HER CHILDREN TO BE DISTRESSING DUE TO GUILT. BILLIE SAID THAT [facility] WOULD BE ABLE TO SUBTLY HELP THE PT REINTEGRATE BACK TO HER EVERY DAY LIFE WITHOUT THE FAMILY NEEDING TO KNOW ALL THE DETAILS ABOUT HER RELAPSE. IT WAS THEN DISCUSSED IF IT WOULD BE BENEFICIAL FOR THE PT TO GO TO THE [facility] ON HER CURRENT 5 DAY HOLD. BILLIE ADVISED THAT IT WOULD BE BEST FOR THE PT TO GO VOLUNTARILY SINCE SHE DOES NOT QUALIFY FOR A 14 DAY DIVERSION AND IS ON DAY 3 OF HER HOLD. IF SHE GOES ON A HOLD RATHER THAN VOLUNTARILY, SHE WILL MOST LIKELY LEAVE SOON THE HOLD IS UP. IF SHE GOES VOLUNTARILY IT IS MORE LIKELY SHE WILL STAY TO GET HELP. BILLIE BELIEVES THAT THE PT WILL BE WILLING TO GO VOLUNTARILY SINCE SHE IS FAMILIAR WITH THE PROGRAM AND THE BENEFITS THAT IT IS ABLE TO OFFER. THIS RN INFORMED PT'S RN ABOUT INFORMATION PRESENTED IN CONVERSATION WITH BILLIE AND PT'S RN TO DISCUSS OPTIONS WITH PT.
--- NOTE | 2024-06-05 16:28 | NUR ---
PT HAS BEEN UP, OUT OF BED SINCE SHIFT CHANGE. SHE STS SHE SLEPT GOOD UNTIL WAKING AT 0430 AND COULDN'T GO BACK TO SLEEP. SHE HAS BEEN ENGAGED AND CLEAR COGNITIVELY THROUGHOUT THE DAY IN THE [place]. SHE HAS PARTICIPATED IN ALL GROUPS AND TV WATCHING. ATTENDED ALL MEALS, DENIES SI, HI, AVH.
--- NOTE | 2024-06-05 17:12 | NUR ---
DENZELARGE PLANNING: PT STS TO THIS RN THAT SHE WOULD LIKE TO MOVE FOREWARD WITH [facility] IN [place]. PASSED THIS INFO TO DC ESCORT VEHICLE DRIVER
[2024-06-06 01:51] VITALS: BP 156/100
--- NOTE | 2024-06-06 04:31 | NUR ---
Patient is A&OX4, very pleasant and cooperative with care. Vicky was spending time in the TV room until HS medications were given just after 1999. She denied SI, HI and AVH on assessment and went to bed shortly before 2100. No complaints of pain or discomfort. Sleeping well overnight. Will continue close monitoring every 15 minutes for safety.
[2024-06-06 08:19] VITALS: BP 141/110
--- NOTE | 2024-06-06 13:54 | NUR ---
Pt Discharge Update Per Dining Host and PCI Nabila from [place] and Pt. Pt will be Discharging/ Referred voluntarily to [facility] in [place]. Referral packet was sent via fax to us from Nabila. Filled out and provided to staffing program manager and DR to complete. Faxed over at 1:50p and are awaiting confirmation of recieval and admittance. Called to arrange a ride for patient Ready ride plans to call when they have an available jeep driver. Once [facility] gives green light, Nabila said it will take an hour from recieval time to process, we can ensure ride timing is appropriate for pt to depart the unit. Will update with more information as it is recieved.
--- NOTE | 2024-06-06 17:11 | NUR ---
SHIFT SUMMARY PT AxOx4. PLEASANT AND COOPERATIVE WITH CARE. PT DECLINED SI/HI AND AVTH THIS SHIFT. PT IS DISCHARGING HOME TODAY. REFERRAL WAS PLACED FOR [facility] FOR [facility] IN [place]. FACILITY WAS NOT ABLE TO ACCEPT PT TODAY, BUT STATES THEY WILL REASSESS IN THE MORNING. PT MADE AWARE AND PLANS TO FOLLOW UP WITH THEM TOMORROW AFTER SHE GETS HOME. DISCHARGE INSTRUCTIONS DISCUSSED WITH PT INCLUDING FOLLOW UP APPOINTMENT INFO, AND PT EDUCATION R/T DIAGNOSES AND MEDICATIONS. PT VERBALIZED UNDERSTANDING. BELONGINGS RETURNED AND PT WAS SAFELY ESCORTED OUT TO [facility] AT APPROX 1635.
== END 2024-06-06 16:35 | disposition home or self-care (01) | DRG 885 ==
LOC: BHU 15:41
PROVIDERS: ADMIT Student in an Organized Health Care Education/Training Program
DX: F20.0 Paranoid schizophrenia (principal); F43.12 Post-traumatic stress disorder, chronic; F60.3 Borderline personality disorder; F41.9 Anxiety disorder, unspecified; Z56.0 Unemployment, unspecified; Z79.2 Long term (current) use of antibiotics; Z79.899 Other long term (current) drug therapy
CPT/HCPCS: A9270